=== PATIENT | male | born 1955 | race Caucasian/White ===

== ENCOUNTER 2017-05-21 12:51 | Emergency (ER) | payer BC ==
[2017-05-21 13:27] VITALS: RESP 18
[2017-05-21] MEDS ORDERED: SODIUM CHLORIDE 0.9% 1,000 ML IV STA (14:07)
--- NOTE | 2017-05-21 14:11 | ED ---
General Adult HPI <Stephan Mcbride - Last Filed: 05/21/17 15:51> - General Source: patient, RN notes reviewed Mode of arrival: ambulatory Limitations: no limitations <Elliot Lopez - Last Filed: 05/21/17 16:21> - General Chief complaint: Extremity Problem,Nontraumatic Stated complaint: L side pain Time Seen by Provider: 05/21/17 13:57 - History of Present Illness Initial comments: 62-year-old male who presents emergency room today with a chief complaint of left-sided shoulder pain, chest pain and abdominal pain. He does admit that symptoms started approximately a week and a half ago. He states he was doing some physical activity and believes he strained or pulled something the left shoulder. He states that it's been bothering over the last week and a half he feels like the pain shoots down to left-sided chest wall and abdomen. Patient states that the pain as at times worse with movements. He states that the pain in the left side of the chest wall and abdomen started just this past week. He does admit that he's had diaphoresis at times. Patient denies any other associated symptoms or complaints. Patient denies any recent shortness of breath , back pain, abdominal pain, nausea or vomiting, numbness or tingling, dysuria or hematuria, constipation or diarrhea, headaches or visual changes, or any other complaints. (Elliot oLpez) - Related Data Home Medications Medication Instructions Recorded Confirmed Loratadine [Claritin] 10 mg PO HS 05/21/17 05/21/17 Naproxen 1,000 mg PO Q12H PRN 05/21/17 05/21/17 Roxanol 750mg 750 mg PO ONCE PRN 05/21/17 05/21/17 Allergies Allergy/AdvReac Type Severity Reaction Status Date / Time No Known Allergies Allergy Verified 05/21/17 13:56 Review of Systems ROS Other: All systems not noted in ROS Statement are negative. <Stephan Mcbride - Last Filed: 05/21/17 15:51> ROS Other: All systems not noted in ROS Statement are negative. <Elliot Lopez - Last Filed: 05/21/17 16:21> ROS Statement: Those systems with pertinent positive or pertinent negative responses have been documented in the HPI. Past Medical History Past Medical History: No Reported History Additional Past Medical History / Comment(s): MELANOMA EAR CA. LEFT EAR DEAFNESS History of Any Multi-Drug Resistant Organisms: MRSA Date of last positivie culture/infection: 2014 MDRO Source:: knee Past Surgical History: Ear Surgery Past Anesthesia/Blood Transfusion Reactions: No Reported Reaction Past Psychological History: No Psychological Hx Reported Smoking Status: Current every day smoker Past Alcohol Use History: Occasional Past Drug Use History: None Reported <Elliot Lopez - Last Filed: 05/21/17 16:21> General Exam <Stephan Mcbride - Last Filed: 05/21/17 15:51> Limitations: no limitations <Elilot Lopez - Last Filed: 05/21/17 16:21> - General Exam Comments Initial Comments: General: The patient is awake and alert, in no distress, and does not appear acutely ill. Eye: Pupils are equal, round and reactive to light, extra-ocular movements are intact. No nystagmus. There is normal conjunctiva bilaterally. No signs of icterus. Ears, nose, mouth and throat: There are moist mucous membranes and no oral lesions. Neck: The neck is supple, there is no tenderness or JVD. Cardiovascular: There is a regular rate and rhythm. No murmur, rub or gallop is appreciated. Tender left side of the chest wall. Respiratory: Lungs are clear to auscultation, respirations are non-labored, breath sounds are equal. No wheezes, stridor, rales, or rhonchi. Gastrointestinal: Normal appearance abdomen. Normal bowel sounds. Soft on palpation. Patient does have tenderness left upper quadrant. No rebound tenderness. No guarding. No CVA tenderness. Musculoskeletal: Normal ROM, no tenderness. Strength 5/5. Sensation intact. Pulses equal bilaterally 2+. Neurological: A&O x 3. CN II-XII intact, There are no obvious motor or sensory deficits. Coordination appears grossly intact. Speech is normal. Skin: Skin is warm and dry and no rashes or lesions are noted. Psychiatric: Cooperative, appropriate mood & affect, normal judgment. (Elliot Lopez) EKG Findings - EKG Comments: EKG Findings:: 1410 normal sinus rhythm at 81 bpm. [place] interval 146. QRS 132. QT/QTc 414/480. Evidence for a left axis deviation and a right bundle branch block. No acute ST changes. <Elliot Lopez - Last Filed: 05/21/17 16:21> Medical Decision Making - Lab Data Result diagrams: 05/21/17 14:24 05/21/17 14:24 <Stephan Mcbride - Last Filed: 05/21/17 15:51> - Lab Data Result diagrams: 05/21/17 14:24 05/21/17 14:24 <Elliot Lopez - Last Filed: 05/21/17 16:21> - Medical Decision Making This is a patient who comes in complaining of left upper quadrant pain he has an extremely high white count and some active bleeding from the spleen. Spoke with Dr. Fair he does not think the patient should be treated here and wants the patient transferred to a facility where interventional radiology might be able to do a procedure without surgery. (Stephan Mcbride) 1612: Patient CT of the abdomen and pelvis does reveal a splenic hemorrhage. Patient denies any specific injury or trauma to the area. Does admit that symptoms began proximate week and a half ago. Patient's labs been reviewed. Hemoglobin stable at 11.2. Patient's vital stable. Emergency room. White count 220. Case was discussed with [facility] Dr Wheatley who will accept the patient. His abdomen is where the plan. Patient will be transferred by EMS. (Elliot Lopez) - Lab Data Lab Results 05/21/17 05/21/17 05/21/17 Range/Units 14:24 14:24 14:24 WBC 220.2 H* (3.8-10.6) k/uL RBC 3.68 L (4.30-5.90) m/uL Hgb 11.2 L (13.0-17.5) gm/dL Hct 32.2 L (39.0-53.0) % MCV 87.7 (80.0-100.0) fL MCH 30.5 (25.0-35.0) pg MCHC 34.8 (31.0-37.0) g/dL RDW 17.3 H (11.5-15.5) % Plt Count 273 (150-450) k/uL Neutrophils % (Manual) 29.5 % Band Neutrophils % 12.5 % Lymphocytes % (Manual) 3.0 % Monocytes % (Manual) 1.5 % Basophils % (Manual) 0.5 % Metamyelocytes % 9.0 % Myelocytes % 27.0 % Promyelocytes % 2.5 % Blast Cells % 14.5 Neutrophils # (Manual) 92.5 H (1.3-7.7) k/uL Lymphocytes # (Manual) 6.6 H (1.0-4.8) k/uL Monocytes # (Manual) 3.3 H (0-1.0) k/uL Basophils # (Manual) 1.1 H (0-0.2) k/uL Nucleated RBCs 1 H (0-0) /100 WBC Manual Slide Review Performed Poikilocytosis (manual Present Anisocytosis Slight PT (9.0-12.0) sec INR (<1.2) APTT (22.0-30.0) sec Sodium 140 (137-145) mmol/L Potassium 4.0 (3.5-5.1) mmol/L Chloride 105 (98-107) mmol/L Carbon Dioxide 26 (22-30) mmol/L Anion Gap 9 mmol/L BUN 12 (9-20) mg/dL Creatinine 1.20 (0.66-1.25) mg/dL Est GFR (MDRD) Af Amer >60 (>60 ml/min/1.73 sqM) Est GFR (MDRD) Non-Af >60 (>60 ml/min/1.73 sqM) Glucose 93 (74-99) mg/dL Calcium 9.3 (8.4-10.2) mg/dL Total Bilirubin 1.1 (0.2-1.3) mg/dL AST 39 (17-59) U/L ALT 34 (21-72) U/L Alkaline Phosphatase 90 (38-126) U/L Total Creatine Kinase (55-170) U/L CK-MB (CK-2) (0.0-2.4) ng/mL CK-MB (CK-2) Rel Index Troponin I (0.000-0.034) ng/mL Total Protein 6.0 L (6.3-8.2) g/dL Albumin 3.5 (3.5-5.0) g/dL Amylase <30 L (30-110) U/L Lipase 25 (23-300) U/L Urine Color Dark Yellow Urine Appearance Cloudy (Clear) Urine pH 5.5 (5.0-8.0) Ur Specific [place] 1.029 (1.001-1.035) Urine Protein 1+ H (Negative) Urine Glucose (UA) Negative (Negative) Urine Ketones Trace H (Negative) Urine Blood Negative (Negative) Urine Nitrite Negative (Negative) Urine Bilirubin 1+ H (Negative) Urine Urobilinogen 4.0 (<2.0) mg/dL Ur Leukocyte Esterase Negative (Negative) Urine RBC 4 (0-5) /hpf Urine WBC 4 (0-5) /hpf Ur Squamous Epith Cells <1 (0-4) /hpf Urine Bacteria Rare H (None) /hpf Hyaline Casts 16 H (0-2) /lpf Granular Casts 5 (0) /lpf Urine Mucus Moderate H (None) /hpf 05/21/17 05/21/17 Range/Units 14:24 14:24 WBC (3.8-10.6) k/uL RBC (4.30-5.90) m/uL Hgb (13.0-17.5) gm/dL Hct (39.0-53.0) % MCV (80.0-100.0) fL MCH (25.0-35.0) pg MCHC (31.0-37.0) g/dL RDW (11.5-15.5) % Plt Count (150-450) k/uL Neutrophils % (Manual) % Band Neutrophils % % Lymphocytes % (Manual) % Monocytes % (Manual) % Basophils % (Manual) % Metamyelocytes % % Myelocytes % % Promyelocytes % % Blast Cells % Neutrophils # (Manual) (1.3-7.7) k/uL Lymphocytes # (Manual) (1.0-4.8) k/uL Monocytes # (Manual) (0-1.0) k/uL Basophils # (Manual) (0-0.2) k/uL Nucleated RBCs (0-0) /100 WBC Manual Slide Review Poikilocytosis (manual Anisocytosis PT 12.5 H (9.0-12.0) sec INR 1.3 H (<1.2) APTT 25.0 (22.0-30.0) sec Sodium (137-145) mmol/L Potassium (3.5-5.1) mmol/L Chloride (98-107) mmol/L Carbon Dioxide (22-30) mmol/L Anion Gap mmol/L BUN (9-20) mg/dL Creatinine (0.66-1.25) mg/dL Est GFR (MDRD) Af Amer (>60 ml/min/1.73 sqM) Est GFR (MDRD) Non-Af (>60 ml/min/1.73 sqM) Glucose (74-99) mg/dL Calcium (8.4-10.2) mg/dL Total Bilirubin (0.2-1.3) mg/dL AST (17-59) U/L ALT (21-72) U/L Alkaline Phosphatase (38-126) U/L Total Creatine Kinase 56 (55-170) U/L CK-MB (CK-2) 0.3 (0.0-2.4) ng/mL CK-MB (CK-2) Rel Index 0.5 Troponin I <0.012 (0.000-0.034) ng/mL Total Protein (6.3-8.2) g/dL Albumin (3.5-5.0) g/dL Amylase (30-110) U/L Lipase (23-300) U/L Urine Color Urine Appearance (Clear) Urine pH (5.0-8.0) Ur Specific [place] (1.001-1.035) Urine Protein (Negative) Urine Glucose (UA) (Negative) Urine Ketones (Negative) Urine Blood (Negative) Urine Nitrite (Negative) Urine Bilirubin (Negative) Urine Urobilinogen (<2.0) mg/dL Ur Leukocyte Esterase (Negative) Urine RBC (0-5) /hpf Urine WBC (0-5) /hpf Ur Squamous Epith Cells (0-4) /hpf Urine Bacteria (None) /hpf Hyaline Casts (0-2) /lpf Granular Casts (0) /lpf Urine Mucus (None) /hpf Disposition <Stephan Mcbride - Last Filed: 05/21/17 15:51> Time of Disposition: 16:10 - Out of Hospital Transfer - Req. Specs Out of Hospital Transfer - Requested Specifics: Other Emergency Center ([facility]) <Elliot Lopez - Last Filed: 05/21/17 16:21> Clinical Impression: Splenic hemorrhage, Leukocytosis Disposition: OTHER INSTITUTION NOT DEFINED Condition: Stable Referrals: Nonstaff,Physician [Primary Care Provider] - 1-2 days
[2017-05-21 14:34] LABS: Anisocytosis Slight; CHCM 33.5; HCT 32.2 % (39.0-53.0); HDW 3.36; HGB 11.2 gm/dL (13.0-17.5); Immature Gran Flag Marked; MCH 30.5 pg (25.0-35.0); MCHC 34.8 g/dL (31.0-37.0); MCV 87.7 fL (80.0-100.0); Mean Platelet Volume 10.1; RBC 3.68 m/uL (4.30-5.90); RDW 17.3 % (11.5-15.5); WBC (Perox) 207.8
[2017-05-21 14:37] LABS: Appearance,Urine Cloudy (Clear); Bacteria,Urine Rare /hpf; Bilirubin,Urine 1+ (Negative); Glucose,Urine (UA) Negative (Negative); Granular Casts,Urine 5 /lpf (0); Ketones,Urine Trace (Negative); Leukocyte Esterase,Urine Negative (Negative); Mucus,Urine Moderate /hpf; Nitrite,Urine Negative (Negative); PH, Urine 5.5 (5.0-8.0); Particle Count 12892; Protein,Urine 1+ (Negative); RBC,Urine 4 /hpf (0-5); Specific Gravity,Urine 1.029 (1.001-1.035); Squamous Epithelial Cell,Urine <1 /hpf (0-4); UA Billing (MACRO vs. MICRO) MICRO; WBC,Urine 4 /hpf (0-5)
[2017-05-21 14:43] LABS: INR 1.3 (<1.2); Prothrombin Time 12.5 sec (9.0-12.0)
[2017-05-21] MEDS ORDERED: RX INFO: IV CONTRAST WAS GIVEN 1 EACH MISC MISCELLANE PRN (14:46)
[2017-05-21 14:47] LABS: ALT 34 U/L (21-72); AST 39 U/L (17-59); Alkaline Phosphatase 90 U/L (38-126); Amylase <30 U/L (30-110); Anion Gap 9 mmol/L; Blood Urea Nitrogen 12 mg/dL (9-20); Calcium 9.3 mg/dL (8.4-10.2); Carbon Dioxide 26 mmol/L (22-30); Chloride 105 mmol/L (98-107); Glucose 93 mg/dL (74-99); Non-African American GFR(MDRD) >60 (>60 ml/min/1.73 sqM); Sodium 140 mmol/L (137-145); Total Bilirubin 1.1 mg/dL (0.2-1.3)
--- NOTE | 2017-05-21 14:50 | XR ---
Abdomen HISTORY: Pain Frontal view of the abdomen submitted on 2 images Lung bases are clear. There is no evident bowel obstruction or pneumoperitoneum. Spinal curvature is noted. There may be underlying hepatosplenomegaly. No pathologic calcification. IMPRESSION: No acute abnormality. Possible hepatosplenomegaly.
--- NOTE | 2017-05-21 14:51 | XR ---
EXAMINATION TYPE: XR chest 2V DATE OF EXAM: 05/21/2017 COMPARISON: NONE HISTORY: Chest pain TECHNIQUE: Frontal and lateral views of the chest are obtained. FINDINGS: There is no focal air space opacity, pleural effusion, or pneumothorax seen. Patient is r otated. Prominent lung volume could be indicative of COPD. The cardiac silhouette size is within norm al limits. The osseous structures are intact. IMPRESSION: No acute cardiopulmonary process.
[2017-05-21 14:55] LABS: Add Differential Manual Differential
[2017-05-21 15:03] LABS: Creatine Kinase 56 U/L (55-170)
[2017-05-21 15:04] LABS: Band Neutrophils % 12.5 %; Blast Cells 14.5; Nucleated Red Blood Cells 1 /100 WBC (0-0); Promyelocytes % 2.5 %; Total Cells Counted 200
[2017-05-21 15:05] LABS: WBC 220.2 k/uL (3.8-10.6)
[2017-05-21 15:06] LABS: Manual Review Performed
[2017-05-21 15:14] LABS: Creatine Kinase MB 0.3 ng/mL (0.0-2.4); Troponin I <0.012 ng/mL (0.000-0.034)
--- NOTE | 2017-05-21 15:49 | CT ---
EXAMINATION TYPE: CT abdomen pelvis w con DATE OF EXAM: 05/21/2017 COMPARISON: NONE HISTORY: Left sided pain without injury CT DLP: 1694 mGycm Automated exposure control for dose reduction was used. TECHNIQUE: Helical acquisition of images from the lung bases through the pelvis have been completed. CONTRAST: Performed without Oral Contrast and with IV Contrast, patient injected with 100 mL of Omnipaque 300. FINDINGS: LUNG BASES: No significant abnormality is appreciated. AORTA: No significant abnormality is appreciated. LIVER/GB: There is a stone in the dependent portion of the gallbladder. Liver shows low attenuation l ikely due to fatty infiltration. There is a probable cyst within the liver measuring approximately 3. 6 cm. PANCREAS: No significant abnormality is seen. SPLEEN: The spleen is markedly enlarged. Multiple areas of increased attenuation are present within t he spleen suggestive of active hemorrhage with splenomegaly. ADRENALS: No significant abnormality is seen. KIDNEYS: No significant abnormality is seen. REPRODUCTIVE ORGANS: No significant abnormality is seen BOWEL: Colonic interposition present anterior to the liver. FREE AIR: No Free Air visible. ASCITES: There is high density fluid within the pelvis suggestive of blood. PELVIC ADENOPATHY: None visualized. RETROPERITONEAL ADENOPATHY: No Retroperitoneal Adenopathy visible. URINARY BLADDER: No significant abnormality is seen. OSSEOUS STRUCTURES: No significant abnormality is seen. Umbilical hernia contains fat. IMPRESSION: FINDINGS OF SPONTANEOUS SPLENIC HEMORRHAGE WITH ACTIVE BLEEDING, SPLENOMEGALY. REPORT RELAYED TO DR. SUTTON TELEPHONICALLY AT THE TIME OF INTERPRETATION OF THE EXAM.
[2017-05-21 17:17] VITALS: BP 132/74; PULSE 82; TEMP 97.6
== END 2017-05-21 17:17 | disposition other institution (70) ==
LOC: EC 12:51
DX: D73.5 Infarction of spleen (principal); D72.829 Elevated white blood cell count, unspecified; M25.512 Pain in left shoulder; R07.89 Other chest pain; R61 Generalized hyperhidrosis; F17.200 Nicotine dependence, unspecified, uncomplicated; Z79.899 Other long term (current) drug therapy
CPT/HCPCS: 36415; 93005; 86900; 86901; 80053; 82150; 82550; 82553; 83690; 84484; 85025; 85610; 85730; 86850; 81001; 71020; 74000; 74177; 99285; 96360; 96361 ×2; Q9967